=== PATIENT | female | born 1945 | race Caucasian/White ===

== ENCOUNTER 2017-03-02 11:08 | Day surgery (SDC) | payer OTHER ==
[2017-02-25 16:38] VITALS: BMI 26.6
[~2017-03-02 11:08] MED LIST: HYDROmorphone 1 MG/ML 1 ML SYRINGE IVP PRN; LACTATED RINGERS 1,000 ML IV SCH; MIDAZOLAM 2 MG/2 ML VIAL IV PRN; ONDANSETRON 4 MG/2 ML VIAL IVP ONE; Pre Op ABX Message 1 EACH MISC MISCELLANE ONE
[2017-03-02 12:09] VITALS: TEMP 98.1
[2017-03-02] MEDS ORDERED: LIDOCAINE 1% 20 ML VIAL (10MG/ML) FOR IV START INTRADERMA ONE (12:09)
[2017-03-02] MEDS ORDERED: MIDAZOLAM 2 MG/2 ML VIAL ONE (13:37)
[2017-03-02] MEDS ORDERED: BUPIVACAINE (PF) 0.5% 30 ML VIAL SQ ONE (13:37)
[2017-03-02] MEDS ORDERED: LIDOCAINE 2% INJ 20 MG/ML SQ ONE (13:37)
[2017-03-02] MEDS ORDERED: fentaNYL (PF) 50 MCG/ML 2 ML AMP ONE (13:37)
[2017-03-02] MEDS ORDERED: PROPOFOL 10 MG/ML 20 ML VIAL IV ONE (13:37)
[2017-03-02] MEDS ORDERED: diphenhydrAMINE 50 MG/ML 1 ML VIAL ONE (13:37)
[2017-03-02 14:49] VITALS: RESP 18
[2017-03-02 15:07] VITALS: PULSE 58
[2017-03-02 15:32] VITALS: BP 150/88
--- NOTE | 2017-03-02 23:25 | OP ---
DATE OF SERVICE: 03/02/2017 SURGEON: MAHSA ABBOTT DO CURATOR ZOOLOGICAL MUSEUM: PREOPERATIVE DIAGNOSIS: Dupuytren's contracture right hand, right middle and right ring finger. POSTOPERATIVE DIAGNOSIS: Dupuytren's contracture right hand, right middle and right ring finger. OPERATION: 1. Excision of Dupuytren's right hand, right middle finger and right ring finger. 2. Neurolysis digital nerves right ring finger. ANESTHESIA: ESTIMATED BLOOD LOSS: SPECIMENS REMOVED: COMPLICATIONS: OPERATIVE FINDINGS: Gross pathology: This was pretendinous cord to both middle and ring fingers, which then branched off into both proximal phalanx levels. In addition, there was some lateral digital sheath involvement in the proximal phalanx level of both fingers. At the completion of the procedure, neurovascular bundles were visualized and noted to be intact and full, passive extension was achieved. DESCRIPTION OF PROCEDURE: A 71-year-old woman is taken to the operative suite, given IV sedation and I performed a modified extended digital block of the right hand, middle and ring fingers with a combination Xylocaine and Marcaine, both without epinephrine. Approximately 20 mL were used. The hand was then prepped and draped in the usual manner was elevated, exsanguinated and cuff was inflated to 250 mmHg. A zigzag incision was made in the mid palm. Skin flaps were dissected, held with skin hooks. Electrocautery was used for hemostasis as necessary. The neurovascular bundles were visualized while the Dupuytren's was excised in a proximal to distal direction. Excision of the pretendinous cord allowed for most of the contracture correction. There was additional tissue causing mild contracture, crossing the MP joint into the proximal phalanges of both fingers. The incisions were then extended into the proximal phalanx level both fingers. Again, the neurovascular bundles were visualized and held gently retracted and the diseased tissue was excised under 4.5 loupe magnification. At the completion of the procedure, very satisfactory correction of the extension was obtained. There was a little bit of nodular Dupuytren's nodular formation remaining in the proximal phalanx level is distal to the incisions, which was not creating any contracture. As previously agreed, this tissue was left alone as it would not change the function of her hand and increased risk with risk to the digital nerves. The tourniquet was then released. The wounds were irrigated. Hemostasis acquired with pressure and electrocautery. The wounds were closed with 5-0 nylon suture. A small area was left open for drainage and tissue expansion purposes. Soft, bulky dressing was applied. Patient was taken to the recovery room in satisfactory condition.
== END 2017-03-02 16:00 | disposition home or self-care (01) ==
LOC: OR 11:08
PROVIDERS: ATTEND Orthopaedic Surgery Hand Surgery
DX: M72.0 Palmar fascial fibromatosis [Dupuytren] (principal); I10 Essential (primary) hypertension; E78.5 Hyperlipidemia, unspecified; Z79.82 Long term (current) use of aspirin; Z79.899 Other long term (current) drug therapy; Z72.0 Tobacco use
CPT/HCPCS: 88304; 26123; 26125; J2001; J2250; J1200; J2405; J3010; J2704

== ENCOUNTER 2017-04-16 08:18 | Emergency (ER) | payer OTHER ==
[2017-04-16] MEDS ORDERED: DIPH,PERTUS(ACELL)TETVAC-LF 0.5 ML VIAL IM ONE (08:30)
[2017-04-16] MEDS ORDERED: ceFAZolin 1,000 MG in DEXTROSE/WATER 1 50ML.BAG IVPB STA (08:30)
[2017-04-16] MEDS ORDERED: RX INFO: IV CONTRAST WAS GIVEN 1 EACH MISC MISCELLANE PRN (08:30)
[2017-04-16] MEDS ORDERED: LORazepam 2 MG/ML SYRINGE IV STA (08:30)
[2017-04-16] MEDS ORDERED: MORPHINE SULFATE 4 MG/ML SYRINGE IVP STA (08:30)
[2017-04-16] MEDS ORDERED: SODIUM CHLORIDE 0.9% 1,000 ML IV STA (08:30)
[2017-04-16] MEDS ORDERED: ACETAMINOPHEN IV (For NPO) 1,000 MG in EMPTY BAG 1 BAG IVPB STA (08:35)
[2017-04-16] MEDS ORDERED: ceFAZolin 2 GM in SODIUM CHLORIDE 0.9% 100 ML IVPB STA (08:35)
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
--- NOTE | 2017-04-16 08:48 | XR ---
EXAMINATION TYPE: XR chest 1V DATE OF EXAM: 04/16/2017 HISTORY: Shortness of breath. COMPARISON: None. TECHNIQUE: Single view of the chest is submitted. Underlying backboard device limits evaluation. FINDINGS: Demonstrated are scattered senescent parenchymal change. No evidence of pneumothorax. There is no evidence for focal infiltrate. The heart is enlarged. Hilar and mediastinal structures are within normal limits. Degenerative changes are seen of the dorsal spine. IMPRESSION: 1. Chronic changes without evidence for acute pulmonary disease.
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
--- NOTE | 2017-04-16 08:49 | XR ---
EXAMINATION TYPE: XR pelvis AP view DATE OF EXAM: 04/16/2017 CLINICAL HISTORY: pain TECHNIQUE: Single view the pelvis is submitted. Underlying backboard device limits evaluation. FINDINGS: No evidence for fracture, dislocation or bony lesion. Joint spaces are well-preserved. S I joints appear symmetric. Degenerative changes lumbar spine. IMPRESSION: 1. No acute fracture or dislocation seen. ICD 10 NO FRACTURE, INITIAL EVALUATION
[2017-04-16 08:58] LABS: Basophils % (A) 0 %; CH 28.6; CHCM 32.5; Eosinophils # (A) 0.1 k/uL (0-0.7); Eosinophils % (A) 1 %; HDW 2.25; Luc # (Auto) 0.14; Luc % (Auto) 1; Lymphocytes # (A) 2.6 k/uL (1.0-4.8); Lymphocytes % (A) 21 %; MCH 28.8 pg (25.0-35.0); MCHC 32.5 g/dL (31.0-37.0); MCV 88.5 fL (80.0-100.0); Mean Platelet Volume 7.8; Monocytes # (A) 0.4 k/uL (0-1.0); Monocytes % (A) 3 %; Neutrophils # (A) 9.3 k/uL (1.3-7.7); Neutrophils % (A) 74 %; RBC 4.18 m/uL (3.80-5.40); WBC 12.6 k/uL (3.8-10.6); WBC (Perox) 13.02
[2017-04-16 09:01] LABS: ALT 100 U/L (9-52); AST 124 U/L (14-36); Alcohol <10 mg/dL; Alkaline Phosphatase 95 U/L (38-126); Amylase 65 U/L (30-110); Anion Gap 8 mmol/L; Blood Urea Nitrogen 24 mg/dL (7-17); Calcium 8.6 mg/dL (8.4-10.2); Carbon Dioxide 25 mmol/L (22-30); Chloride 106 mmol/L (98-107); Glucose 147 mg/dL (74-99); Non-African American GFR(MDRD) >60 (>60 ml/min/1.73 sqM); Potassium 4.2 mmol/L (3.5-5.1); Sodium 139 mmol/L (137-145); Total Bilirubin 0.3 mg/dL (0.2-1.3); Total Protein 6.2 g/dL (6.3-8.2)
[2017-04-16 09:09] LABS: Partial Thromboplastin Time 22.6 sec (22.0-30.0)
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
[2017-04-16 09:28] LABS: Creatine Kinase MB 4.4 ng/mL (0.0-2.4); Troponin I 0.06 ng/mL (0.000-0.034)
[2017-04-16 10:02] VITALS: BP 131/74; PULSE 70; RESP 18; TEMP 97.4
--- NOTE | 2017-04-16 10:19 | XR ---
EXAMINATION TYPE: XR wrist complete RT, XR forearm RT DATE OF EXAM: 04/16/2017 CLINICAL HISTORY: pain TECHNIQUE: Frontal, lateral and oblique images of the right wrist are obtained. AP and lateral views of the right forearm are also submitted. COMPARISON: None. FINDINGS: Overlying cast material does obscure fine bony detail. Partially impacted and moderately displaced fractures of the distal radius and ulna. Radial displacem ent estimated at 1 cm. IMPRESSION: Distal radial and ulnar fractures as discussed. ICD 10 closed FRACTURE, INITIAL EVALUATION
--- NOTE | 2017-04-16 10:21 | XR ---
EXAMINATION TYPE: XR tibia fibula bilateral, XR ankle complete bilateral DATE OF EXAM: 04/16/2017 CLINICAL HISTORY: Trauma injury with pain TECHNIQUE: Two views of bilateral legs are obtained. 3 views of bilateral ankles are acquired. COMPARISON: None. FINDINGS: There is no acute fracture or dislocation seen in either tibia or fibula. The bilateral k nee joints show tibial condylar spurring and mild to moderate tibiofemoral joint space loss most pron ounced medial compartment left knee. There is patellofemoral mild/moderate joint space loss and spurr ing bilaterally. There is additional spurring from anterior superior left patella at distal quadricep s tendon attachment. The overlying soft tissue appears unremarkable bilaterally. Images of bilateral ankles show no acute fracture or dislocation. Ankle mortise symmetry is preserved bilaterally. There are superior and inferior calcaneal spurs noted bilaterally. Overlying soft tissu e is unremarkable bilaterally. IMPRESSION: There is no acute fracture or dislocation seen in the bilateral legs or ankles.
--- NOTE | 2017-04-16 10:24 | XR ---
EXAMINATION TYPE: XR elbow complete RT, XR humerus RT DATE OF EXAM: 04/16/2017 CLINICAL HISTORY: pain TECHNIQUE: Frontal and lateral images of the right elbow are obtained. Examination is limited given difficulty with patient positioning. Overlying cast material further limits evaluation. 2 views of t he right humerus are also submitted. COMPARISON: None. FINDINGS: There is radial head dislocation. Large bony fragment is identified which likely reflects a displaced fracture arising from the ulnar olecranon. Distal humerus appears to be grossly intact alt dimas fracture is difficult to exclude. Fat pads poorly evaluated. IMPRESSION: Fracture dislocation about the right elbow as discussed above. Examination is limited. ICD 10 closed FRACTURE, INITIAL EVALUATION
[2017-04-20 08:28] LABS: Glucose,Whole Blood 148 mg/dL (75-99)
== END 2017-04-16 11:23 | disposition other institution (70) ==
LOC: EC 08:18
DX: S52.501A Unspecified fracture of the lower end of right radius, initial encounter for closed fracture (principal); S52.601A Unspecified fracture of lower end of right ulna, initial encounter for closed fracture; S22.41XA Multiple fractures of ribs, right side, initial encounter for closed fracture; S53.004A Unspecified dislocation of right radial head, initial encounter; S80.01XA Contusion of right knee, initial encounter; S80.12XA Contusion of left lower leg, initial encounter; S27.329A Contusion of lung, unspecified, initial encounter; S26.91XA Contusion of heart, unspecified with or without hemopericardium, initial encounter; R40.2412 Glasgow coma scale score 13-15, at arrival to emergency department; E78.5 Hyperlipidemia, unspecified; I10 Essential (primary) hypertension; E07.9 Disorder of thyroid, unspecified; M19.90 Unspecified osteoarthritis, unspecified site; Z23 Encounter for immunization; Z79.82 Long term (current) use of aspirin; Z79.899 Other long term (current) drug therapy; V57.5XXA Driver of pick-up truck or van injured in collision with fixed or stationary object in traffic accident, initial encounter; W22.11XA Striking against or struck by driver side automobile airbag, initial encounter; Y92.410 Unspecified street and highway as the place of occurrence of the external cause
CPT/HCPCS: 99291 ×2; 99292 ×2; 25605 ×2; 24640 ×2; 96365 ×2; 96375 ×3; 90471 ×2; 36415; 93005; 86900; 86901; 80053; 82150; 82550; 82553; 83690; 84484; 85025; 85610; 85730; 86850; 80320; 71010; 73610; 73590; 72170; 73060; 73080; 73090; 73110; 72125; 70450; 71260; 74177; 90715; J2060; J2270; J0690; Q9967; J0131

== ENCOUNTER → 2019-09-19 | Outpatient (CLI) | payer MEDICARE ==
--- NOTE | 2019-09-19 11:13 | XR ---
EXAMINATION TYPE: XR KUB DATE OF EXAM: 09/19/2019 11:04 AM CLINICAL HISTORY: Urinary tract infection. TECHNIQUE: Two supine KUB images of the abdomen are obtained. COMPARISON: CT April 16, 2017. FINDINGS: Scattered gas is seen in non-distended small bowel loops. Gas and fecal material is seen in non-distended colon. There is no visceromegaly, pneumoperitoneum, or abnormal calcification apprecia primo. Underlying levoconvex scoliosis centered at L3 level redemonstrated moderate narrowing of both h ip joints. There is moderate to severe disc space narrowing with endplate sclerosis and spurring L4-L 5 level redemonstrated. Otherwise lung bases are clear. IMPRESSION: Overall nonobstructive bowel gas pattern.
--- NOTE | 2019-09-19 14:31 | US ---
EXAMINATION TYPE: US kidneys/renal and bladder DATE OF EXAM: 09/19/2019 COMPARISON: NONE CLINICAL HISTORY: N39.0 Urinary tract infection, site not specified. Recurrent UTI EXAM MEASUREMENTS: Right Kidney: 10.8 x 5.2 x 4.2 cm Left Kidney: 11.5 x 4.6 x 4.2 cm Post Void Residual Volume: 29.4 mL Right Kidney: Small renal sinus cyst measuring 1.6 x 1.1 x 0.8 cm Left Kidney: No hydronephrosis or masses seen Bladder: wnl Bilateral Jets seen: Yes Normal Post Void Residual: Yes There is no evidence for hydronephrosis at this point in time. No nephrolithiasis is seen. The urina ry bladder is anechoic. Bilateral ureteral jets are seen. IMPRESSION: 1. Urinary bladder is anechoic and there is a normal residual the urinary bladder. 2. Incidentally noted 1.6 cm benign-appearing right renal sinus cyst.
== END | disposition home or self-care (01) ==
LOC: RADUSWWP 10:48
PROVIDERS: ATTEND Urology
DX: N28.1 Cyst of kidney, acquired (principal); N39.0 Urinary tract infection, site not specified
CPT/HCPCS: 74018; 76770